=== PATIENT | female | born 1975 | race Caucasian/White ===

== ENCOUNTER 2022-09-05 22:01 | Emergency (ER) | payer MEDICARE, MEDICAID ==
[~2022-09-05] VITALS: Ht 167.6 cm; Wt 70.9 kg
[~2022-09-05 22:01] MED LIST: HYDR4TAB45 PO; NITR100C6 PO; ONDA4TAB12 PO; ONDA4TAB59 PO; ONDA8TAB9 PO; PANT-47 PO; PHEN-824 PO; POTA-207 PO; QUET25TA PO; SUMA50TA PO; ZOF4T PO
[2022-09-05 22:09] VITALS: BP 110/61
[2022-09-05 22:49] LABS: URINE HCG NEGATIVE (NEG)
[2022-09-05 22:52] LABS: EOSINOPHILS # (AUTO) 0.1 X10'3 (0-0.9); HEMOGLOBIN 12.5 g/dl (12.0-16.0)
[2022-09-05 22:53] LABS: BASOPHILS # (AUTO) 0.1 X10'3 (0-0.2); BASOPHILS % (AUTO) 0.7 % (0-1); EOSINOPHILS % (AUTO) 0.9 % (0-6); HEMATOCRIT 37.3 % (35.0-45.0); LYMPHOCYTES # (AUTO) 3.8 X10'3 (1.1-4.8); LYMPHOCYTES % (AUTO) 36.1 % (21-51); MEAN CORPUSCULAR HEMOGLOBIN 33.6 PG (27.0-31.0); MEAN CORPUSCULAR HGB CONC 33.5 g/dL (33.0-36.5); MEAN CORPUSCULAR VOLUME 100.4 FL (78-98); MEAN PLATELET VOLUME 7.8 FL (7.4-10.4); MONOCYTES # (AUTO) 1.1 X10'3 (0-0.9); MONOCYTES % (AUTO) 10.3 % (2-12); NEUTROPHILS # (AUTO) 5.4 X10'3 (1.8-7.7); PLATELET COUNT 302 X10'3 (140-440); RED BLOOD COUNT 3.72 X10'6 (4.20-5.60); RED CELL DISTRIBUTION WIDTH 15.1 % (11.5-14.5); WHITE BLOOD COUNT 10.4 X10'3 (4.5-11.0)
[2022-09-05 22:55] LABS: COLOR,URINE YELLOW (Yellow); GLUCOSE, URINE NEGATIVE (Neg); KETONES,URINE NEGATIVE (Neg); LEUKOCYTE ESTERASE ,URINE NEGATIVE (Neg); NITRITES, URINE NEGATIVE (Neg); OCCULT BLOOD,URINE SMALL (Neg); PROTEIN,URINE NEGATIVE (Neg); UROBILINOGEN,URINE 0.2 E.U/dL (0.2-1.0)
[2022-09-05 23:05] LABS: CLARITY,URINE SLIGHTLY CLOUDY (Clear); UA COLLECTION TYPE CLN CATCH MIDSTREAM
[2022-09-05 23:06] LABS: ALANINE AMINOTRANSFERASE 18 U/L (12-78); ALBUMIN/GLOBULIN RATIO 1.1 (1.1-1.5); ALKALINE PHOSPHATASE 86 IU/L (46-116); ANION GAP 9 (8-16); ASPARTATE AMINO TRANSFERASE 11 U/L (10-37); BILIRUBIN,TOTAL 0.2 MG/DL (0.1-1.0); BLOOD UREA NITROGEN 11 MG/DL (7-18); BUN/CREATININE RATIO 9.9 (10.0-20.0); CALCIUM 8.9 MG/DL (8.5-10.1); CHLORIDE 106 MMOL/L (99-107); CREATININE 1.11 MG/DL (0.40-0.90); GLUCOSE 102 MG/DL (70-104); LIPASE < 50 U/L (73-393); POTASSIUM 3.9 MMOL/L (3.5-5.1); SODIUM 141 MMOL/L (135-145); TOTAL CARBON DIOXIDE 26.1 MMOL/L (24-32); TOTAL PROTEIN 7.5 G/DL (6.4-8.2); eGFR 52 ML/MIN
[2022-09-05 23:09] LABS: BACTERIA,URINE 1+ /HPF (Neg); MUCUS STRANDS MANY /LPF (Neg); SQUAMOUS EPITHELIAL CELL,UR MANY /LPF (FEW); WBC,URINE 0-4 /HPF (0-4)
[2022-09-06 01:40] LABS: ETHANOL < 0.010 GM/DL (0.0-0.010)
[2022-09-06] MEDS ORDERED: ketorolac trometh inj. 60 MG/2 ML VIAL IM ONE (01:40)
[2022-09-06] MEDS ORDERED: dicyclomine 10 MG capsule PO ONE (01:40)
[2022-09-06] MEDS ORDERED: PANT20TA18 PO (01:40)
[2022-09-06] MEDS ORDERED: pantoprazole 40mg Tablet.DR PO ONE (01:40)
[2022-09-06] MEDS ORDERED: DICY10CA88 PO (01:40)
[2022-09-06 02:53] LABS: URINE AMPHETAMINE SCREEN NEGATIVE (Neg); URINE BARBITUATE SCREEN NEGATIVE (Neg); URINE BENZODIAZEPINES SCREEN NEGATIVE (Neg); URINE CANNABINOID SCREEN POSITIVE (Neg); URINE COCAINE SCREEN NEGATIVE (Neg); URINE METHADONE SCREEN NEGATIVE (Neg); URINE OPIATE SCREEN POSITIVE (Neg); URINE PHENCYCLIDINE SCREEN NEGATIVE (Neg)
== END 2022-09-06 01:54 | disposition home or self-care (01) ==
LOC: ER 22:02
DX: R10.84 Generalized abdominal pain (principal); G43.909 Migraine, unspecified, not intractable, without status migrainosus; G89.29 Other chronic pain; M54.9 Dorsalgia, unspecified; F31.9 Bipolar disorder, unspecified; F12.10 Cannabis abuse, uncomplicated; F15.10 Other stimulant abuse, uncomplicated
CPT/HCPCS: 36415; 80053; 80305; 80320; 81001; 81025; 83690; 85025; 96372; 99283; J1885

== ENCOUNTER 2022-09-09 17:27 | Emergency (ER) | payer MEDICARE, MEDICAID ==
[~2022-09-09] VITALS: Ht 167.6 cm; Wt 75.0 kg
[~2022-09-09 17:27] MED LIST changes: +DICY10CA88 PO; +PANT20TA18 PO
[2022-09-09 17:42] VITALS: BP 97/70
== END 2022-09-09 18:31 ==
LOC: ER 17:27
DX: F10.129 Alcohol abuse with intoxication, unspecified (principal); G89.29 Other chronic pain; M54.9 Dorsalgia, unspecified; F31.9 Bipolar disorder, unspecified; V87.7XXA Person injured in collision between other specified motor vehicles (traffic), initial encounter; Z90.49 Acquired absence of other specified parts of digestive tract; Z59.00 Homelessness unspecified; F12.10 Cannabis abuse, uncomplicated; F15.10 Other stimulant abuse, uncomplicated; Z88.8 Allergy status to other drugs, medicaments and biological substances; Z79.899 Other long term (current) drug therapy; Y90.9 Presence of alcohol in blood, level not specified
CPT/HCPCS: 99283

== ENCOUNTER 2023-01-02 12:52 | Emergency (ER) | payer MEDICARE, MEDICAID ==
[~2023-01-02] VITALS: Ht 167.6 cm; Wt 75.0 kg
[~2023-01-02 12:52] MED LIST changes: -DICY10CA88 PO
[2023-01-02 12:59] VITALS: BP 125/87; PULSE 80; RESP 18; TEMP 97; O2SAT 98
[2023-01-02] MEDS ORDERED: ALBU6.7H14 INH (13:43)
== END 2023-01-02 13:52 | disposition home or self-care (01) ==
LOC: ER 12:52
DX: Z00.00 Encounter for general adult medical examination without abnormal findings (principal); R06.2 Wheezing; G43.909 Migraine, unspecified, not intractable, without status migrainosus; F31.9 Bipolar disorder, unspecified; F12.90 Cannabis use, unspecified, uncomplicated; F15.90 Other stimulant use, unspecified, uncomplicated; Z79.899 Other long term (current) drug therapy; Z90.49 Acquired absence of other specified parts of digestive tract; Z98.890 Other specified postprocedural states
CPT/HCPCS: 99283

== ENCOUNTER → 2023-03-16 | Emergency (ER) | payer MEDICARE, MEDICAID ==
[~2023-03-16] VITALS: Ht 167.6 cm; Wt 58.7 kg
[~2023-03-16] MED LIST changes: +ALBU6.7H14 INH; +CLIN300C3 PO; +HYDR-3686 PO; -HYDR4TAB45 PO; +HYDROcodone/acetaminophen 5mg/325mg tablet PO ONE; +NAPR-56 PO; -NITR100C6 PO; +OLAN10TA73 PO; -ONDA4TAB12 PO; -ONDA4TAB59 PO; -ONDA8TAB9 PO; -PANT-47 PO; -PANT20TA18 PO; -PHEN-824 PO; -POTA-207 PO; -QUET25TA PO; -SUMA50TA PO; -ZOF4T PO; +clindamycin 150mg capsule PO ONE
[2023-03-16 10:31] VITALS: BP 102/76; PULSE 99; RESP 16; O2SAT 98
[2023-03-16 13:04] VITALS: TEMP 97.8
== END | disposition home or self-care (01) ==
LOC: ER 10:30
DX: L03.90 Cellulitis, unspecified (principal); G43.909 Migraine, unspecified, not intractable, without status migrainosus; F31.9 Bipolar disorder, unspecified; F12.10 Cannabis abuse, uncomplicated; F15.10 Other stimulant abuse, uncomplicated; Z79.899 Other long term (current) drug therapy
CPT/HCPCS: 99283